=== PATIENT | male | born 1995 | race Caucasian/White ===

== ENCOUNTER 2019-01-03 22:02 | Emergency (ER) | payer OTHER ==
[2019-01-03] MEDS ORDERED: Ibuprofen TAB* 400 MG PO ONE (23:18)
[2019-01-03] MEDS ORDERED: oxyCODONE TAB* 5 MG TAB PO ONE ×2 (23:18→23:25)
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
[2019-01-03 23:44] VITALS: BP 136/91
== END 2019-01-03 23:43 | disposition home or self-care (01) ==
LOC: ED 22:02
DX: M25.511 Pain in right shoulder (principal); Z88.0 Allergy status to penicillin
CPT/HCPCS: 99282; A9270-GY

== ENCOUNTER 2019-01-04 10:45 | Emergency (ER) | payer OTHER ==
[2019-01-04 11:09] LABS: ABS Eosinophils 0.1 10^3/ul (0-0.6); ABS Lymphocytes 1.8 10^3/ul (1.0-4.8); ABS Monocytes 0.7 10^3/ul (0-0.8); ABS Neutrophils 5.4 10^3/ul (1.5-7.7); Eosinophil % 0.8 %; Hematocrit 45 % (42-52); Hemoglobin 15.9 g/dL (14.0-18.0); Lymphocyte % 23.1 %; Mean Corpuscular HGB Conc 35 g/dL (31-36); Mean Corpuscular Hemoglobin 32 pg (27-31); Mean Corpuscular Volume 90 fL (80-94); Mean Platelet Volume 7.1 fL (7.4-10.4); Platelet Count 228 10^3/uL (150-450); Red Blood Count 5.01 10^6 /uL (4.18-5.48); Red Cell Distribution Width 14 % (10-15)
[2019-01-04 11:19] LABS: INR 1.06 (0.82-1.09)
[2019-01-04 11:33] LABS: Albumin 4.6 g/dL (3.2-5.2); Albumin/Globulin Ratio 1.6 (1-3); Calcium 9.1 mg/dL (8.6-10.3); EGFR African American 137.7 (>60); EGFR Non-African American 113.8 (>60); Globulin 2.8 g/dL (2-4); Potassium 3.9 mmol/L (3.5-5.0); Total Bilirubin 0.5 mg/dL (0.2-1.0); Total Protein 7.4 g/dL (6.4-8.9)
[2019-01-04 13:47] VITALS: BP 170/90
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
== END 2019-01-04 13:46 | disposition home or self-care (01) ==
LOC: ED 10:45
DX: R20.2 Paresthesia of skin (principal); Z88.0 Allergy status to penicillin
CPT/HCPCS: 36415; 80053; 84484; 85025; 85610; 93005; 99281